=== PATIENT | male | born 1960 | race Caucasian/White ===

== ENCOUNTER 2025-01-12 02:33 | Inpatient (IN) | payer SELFPAY ==
[2025-01-11 20:03] VITALS: BP 141/87
[2025-01-11 20:48] LABS: ALT (SGPT) 18 U/L (0-50); AST (SGOT) 29 U/L (17-59); Albumin 4.3 g/dl (3.5-5.0); Alkaline Phosphatase 75 U/L (38-126); Blood Urea Nitrogen 22 mg/dl (9-20); Calcium 9.3 mg/dl (8.4-10.2); Carbon Dioxide 26 mmol/L (22-30); Chloride 101 mmol/L (98-107); Glucose 113 mg/dl (70-99); Potassium 4.5 mmol/L (3.5-5.1); Sodium 135 mmol/L (135-145); Total Protein 7.3 g/dl (6.3-8.2); eGFR 44.46
[2025-01-11 20:56] LABS: Hematocrit 25.3 % (39.0-52.0); Hemoglobin 7.2 g/dL (13.0-18.0); Mean Corp Hgb Conc. 28.5 g/dL (33.0-37.0); Mean Corpuscular Volume 73.3 fL (80.0-94.0); Platelet Count 401 10^3/uL (130-400); Red Cell Dist. Width 17.8 % (11.5-14.5)
[2025-01-11 20:57] LABS: Troponin I 0.020 ng/ml
--- NOTE | 2025-01-11 21:14 | ED.GENMED ---
History of Present Illness
<Corinna Petit PA-C - Last Filed: 01/12/25 01:50>
General
Chief Complaint: Abdominal Symptoms
Source: patient
Exam Limitations: none
Time Seen by Provider: 01/11/25 21:13
History of Present Illness
History of Present Illness:
64yoM with a history of tobacco use presenting for evaluation of weakness. Patient has been feeling fatigued and weak for the past several months. He was at work today and started to feel increasingly weak. He went outside and started to become
nauseous. He vomited twice and noticed that his right groin felt like it 'popped.' He noticed a small bulge in the right testicle yesterday which has become much larger today. He denies any groin pain currently. Patient has also been
experiencing bilateral flank pain over the past week. He denies any shortness of breath, chest pain, syncope. He has not seen a PCP in many years due to lack of health insurance. He smokes about 1 pack/day.
Phy Exam
<Corinna Petit PA-C - Last Filed: 01/12/25 01:50>
General Physical Exam
General Presentation: well appearing and no apparent distress
General Skin: warm and dry
General Habitus: normal
General Mental: alert
ENT Exam
ENT Exam: normocephalic
Cardiovascular Exam
Cardiovascular Exam: regular rate/rhythm
Pulmonary Exam
Pulmonary Exam: lungs clear, no respiratory distress, no rales, no crackles, no rhonchi and no wheezing
Gastrointestinal Exam
Gastrointestinal Exam: soft and other (Abdomen mildly distended but soft. No tenderness noted. +Large R inguinal hernia noted with scrotal enlargement. Hernia unable to be reduced. No skin changes.)
Stool: other (Stool brown, hemoccult positive)
Neurological Exam
Neurological Exam: alert
[place] Coma Scale
Eye Opening: Spontaneous
Verbal Response: Oriented
Motor Response: Obeys Commands
GCS Total Score: 15
Skin Exam
Skin Exam: normal color and warm/dry
Psychiatric Exam
Psychiatric Exam: normal mood/affect
<Anton Galindo DO - Last Filed: 01/13/25 06:19>
[place] Coma Scale
GCS Total Score: 15
Course
<Corinna Petit PA-C - Last Filed: 01/12/25 01:50>
Orders/Labs/Results
Orders:
Orders
01/11/25 20:11
Electrocardiogram (*1) Urgent
Reason for Study: Vertigo / Dizzy
EKG- Treatment ONCE
01/11/25 20:25
Complete Blood Count/With Diff Urgent
Comprehensive Metabolic Panel Urgent
Troponin I Urgent
01/11/25 21:36
CT Abd/pel W Iv And Oral Contr Urgent
Comment:
Reason For Exam: bilateral flank pain, R testicular pain
Iohexol [Omnipaque] See Protocol PO NOW STA
Pantoprazole [Protonix IV] 40 mg IV NOW STA
01/11/25 21:37
0.9% Sodium Chloride 1000 ml [Nss] 1,000 ml IV BOLUS
01/11/25 22:00
Type+Screen Urgent
01/12/25 00:51
NG Tube [GI tube insertion- Treatment] ONCE
01/12/25 00:53
Lactate Level [Lactic Acid] Urgent
01/12/25 01:00
Lidocaine 2% [Lidocaine Uro-Jet 2%] 1 syringe .ROUTE .STK-MED ONE
01/12/25 02:10
Admit/Transfer Patient As Directed
Co-Sign Provider:
Level of Care: Inpatient admission
Assign to:: Medical/Surgical
Physician / Group: Kenneth
Diagnosis: SBO, Inguinal Hernia, GI Bleeding
Reason for Hospitalization: SBO, Inguinal Hernia, GI Bleeding
Expected length of stay greater than two midnights?: Yes
ELOS- Estimated Length of Stay in days: 3
I certify the patient meets the requirements for IP care: Yes
PRN Pain Medication Management As Directed
May give lesser potent ordered pain med per pt: Yes
preference::
Protocol:: Medication orders for pain may be administered in a
manner that supports deferring to patient preference
when the pt is:
- Requesting an ordered lesser potent pain medication.
Least to most potent pain medications are defined
as: acetaminophen < NSAID < tramadol < opioids
(morphine, oxycodone, hydromorphone).
- Requesting a lesser dose of the same medication IF
ORDERED.
- Requesting a less intrusive route of administration
if both routes are prescribed by the provider (PO <
IV).
01/12/25 02:11
Code Status As Directed
Resuscitation Status: Full Code
01/12/25 02:44
HYDROmorphone [Dilaudid] 0.5 mg IV Q4HPRN PRN
Ondansetron Injectable [Zofran] 4 mg IV Q6HPRN PRN
01/12/25 02:44
Consult Notification Routine
Specialty to Notify: Gastroenterology
Date consulting provider notified: 01/12/25
Time consulting provider notified: 07:36
Notified:: Provider
Comment: Monsivais
GASTROINTESTINAL CONSULT Routine
Consulting Provider: Aura Felton
Was physician already notified: No
Reason for consult: GI Bleed
SURGICAL CONSULT Routine
Consulting Provider: Modesto Dunham
Was physician already notified: Yes
Reason for consult: RIH, SBO
Activity As Directed
Activity Level: Ambulate
With Assistance
Gastrointestinal Tubes As Directed
Type: [place] sump
To suction?: Yes
Type of suction: Low intermittent
Irrigate tube?: Yes
Irrigant: Tap Water
Frequency: Q4H
Amount in mls: 30
Irrigation Directions: Irrigate Q4H and PRN
I/O [Intake/ Output] As Directed
Frequency: Per unit guidelines
Pneumatic Compression Sleeves As Directed
Type: Knee high
Vital Signs As Directed
Frequency: Per unit guidelines
Oxygen Therapy [O2 Therapy] [RESP] Routine
Titrate/Wean O2 to maintain O2 sat greater than (%): 94
DX Deep Vein Thrombosis Video Routine
01/12/25 03:00
Lactated Ringers [Lr] 1,000 ml IV 100 mls/hr
01/12/25 04:55
Basic Metabolic Panel IN AM
Complete Blood Count/No Diff IN AM
Iron Routine
Total Iron Binding Routine
01/12/25 Breakfast
NPO
Allow oral meds: Yes
Allow clear liquids: Sips of Clears
01/12/25 08:00
Pantoprazole [Protonix IV] 40 mg IV BID
Abnormal Lab Results
01/11/25 01/11/25
20 22:00
RBC 3.45 L 10^6/uL
(4.70-6.10)
Hgb 7.2 L g/dL
(13.0-18.0)
Hct 25.3 L %
(39.0-52.0)
MCV 73.3 L fL
(80.0-94.0)
MCH 20.9 L pg
(27.0-31.0)
MCHC 28.5 L g/dL
(33.0-37.0)
RDW 17.8 H %
(11.5-14.5)
Plt Count 401 H 10^3/uL
(130-400)
Absolute Monos (auto) 0.7 H 10^3/uL
(0.1-0.6)
Lymphocytes % 16.1 L %
(20.5-51.1)
BUN 22 H mg/dl
(9-20)
Creatinine 1.7 H mg/dL
(0.7-1.3)
Glucose 113 H mg/dl
(70-99)
Crossmatch IS Only See Detail
01/11/25 20:25
01/11/25 20:25
Vital Signs
Initial and Last Documented VS:
Initial Vital Signs
Temp Pulse Resp BP Pulse Ox
97.7 F 104 22 141/87 99
01/11/25 20:03 01/11/25 20:03 01/11/25 20:03 01/11/25 20:03 01/11/25 20:03
Last Documented Vital Signs
Temp Pulse Resp BP Pulse Ox
97.8 F 81 18 137/85 95
01/12/25 22:55 01/12/25 22:55 01/12/25 22:55 01/12/25 22:55 01/12/25 22:55
<Anton Galindo, DO - Last Filed: 01/13/25 06:19>
Orders/Labs/Results
Orders:
Orders
01/11/25 20:11
Electrocardiogram (*1) Urgent
Reason for Study: Vertigo / Dizzy
EKG- Treatment ONCE
01/11/25 20:25
Complete Blood Count/With Diff Urgent
Comprehensive Metabolic Panel Urgent
Troponin I Urgent
01/11/25 21:36
CT Abd/pel W Iv And Oral Contr Urgent
Comment:
Reason For Exam: bilateral flank pain, R testicular pain
Iohexol [Omnipaque] See Protocol PO NOW STA
Pantoprazole [Protonix IV] 40 mg IV NOW STA
01/11/25 21:37
0.9% Sodium Chloride 1000 ml [Nss] 1,000 ml IV BOLUS
01/11/25 22:00
Type+Screen Urgent
01/12/25 00:51
NG Tube [GI tube insertion- Treatment] ONCE
01/12/25 00:53
Lactate Level [Lactic Acid] Urgent
01/12/25 01:00
Lidocaine 2% [Lidocaine Uro-Jet 2%] 1 syringe .ROUTE .STK-MED ONE
01/12/25 02:10
Admit/Transfer Patient As Directed
Co-Sign Provider:
Level of Care: Inpatient admission
Assign to:: Medical/Surgical
Physician / Group: Kenneth
Diagnosis: SBO, Inguinal Hernia, GI Bleeding
Reason for Hospitalization: SBO, Inguinal Hernia, GI Bleeding
Expected length of stay greater than two midnights?: Yes
ELOS- Estimated Length of Stay in days: 3
I certify the patient meets the requirements for IP care: Yes
PRN Pain Medication Management As Directed
May give lesser potent ordered pain med per pt: Yes
preference::
Protocol:: Medication orders for pain may be administered in a
manner that supports deferring to patient preference
when the pt is:
- Requesting an ordered lesser potent pain medication.
Least to most potent pain medications are defined
as: acetaminophen < NSAID < tramadol < opioids
(morphine, oxycodone, hydromorphone).
- Requesting a lesser dose of the same medication IF
ORDERED.
- Requesting a less intrusive route of administration
if both routes are prescribed by the provider (PO <
IV).
01/12/25 02:11
Code Status As Directed
Resuscitation Status: Full Code
01/12/25 02:44
HYDROmorphone [Dilaudid] 0.5 mg IV Q4HPRN PRN
Ondansetron Injectable [Zofran] 4 mg IV Q6HPRN PRN
01/12/25 02:44
Consult Notification Routine
Specialty to Notify: Gastroenterology
Date consulting provider notified: 01/12/25
Time consulting provider notified: 07:36
Notified:: Provider
Comment: Monsivais
GASTROINTESTINAL CONSULT Routine
Consulting Provider: Aura Felton
Was physician already notified: No
Reason for consult: GI Bleed
SURGICAL CONSULT Routine
Consulting Provider: Modesto Dunham
Was physician already notified: Yes
Reason for consult: RIH, SBO
Activity As Directed
Activity Level: Ambulate
With Assistance
Gastrointestinal Tubes As Directed
Type: [place] sump
To suction?: Yes
Type of suction: Low intermittent
Irrigate tube?: Yes
Irrigant: Tap Water
Frequency: Q4H
Amount in mls: 30
Irrigation Directions: Irrigate Q4H and PRN
I/O [Intake/ Output] As Directed
Frequency: Per unit guidelines
Pneumatic Compression Sleeves As Directed
Type: Knee high
Vital Signs As Directed
Frequency: Per unit guidelines
Oxygen Therapy [O2 Therapy] [RESP] Routine
Titrate/Wean O2 to maintain O2 sat greater than (%): 94
DX Deep Vein Thrombosis Video Routine
01/12/25 03:00
Lactated Ringers [Lr] 1,000 ml IV 100 mls/hr
01/12/25 04:55
Basic Metabolic Panel IN AM
Complete Blood Count/No Diff IN AM
Iron Routine
Total Iron Binding Routine
01/12/25 Breakfast
NPO
Allow oral meds: Yes
Allow clear liquids: Sips of Clears
01/12/25 08:00
Pantoprazole [Protonix IV] 40 mg IV BID
Abnormal Lab Results
01/11/25 01/11/25
20:25 22:00
RBC 3.45 L 10^6/uL
(4.70-6.10)
Hgb 7.2 L g/dL
(13.0-18.0)
Hct 25.3 L %
(39.0-52.0)
MCV 73.3 L fL
(80.0-94.0)
MCH 20.9 L pg
(27.0-31.0)
MCHC 28.5 L g/dL
(33.0-37.0)
RDW 17.8 H %
(11.5-14.5)
Plt Count 401 H 10^3/uL
(130-400)
Absolute Monos (auto) 0.7 H 10^3/uL
(0.1-0.6)
Lymphocytes % 16.1 L %
(20.5-51.1)
BUN 22 H mg/dl
(9-20)
Creatinine 1.7 H mg/dL
(0.7-1.3)
Glucose 113 H mg/dl
(70-99)
Crossmatch IS Only See Detail
01/11/25 20:25
01/11/25 20:25
Vital Signs
Initial and Last Documented VS:
Initial Vital Signs
Temp Pulse Resp BP Pulse Ox
97.7 F 104 22 141/87 99
01/11/25 20:03 01/11/25 20:03 01/11/25 20:03 01/11/25 20:03 01/11/25 20:03
Last Documented Vital Signs
Temp Pulse Resp BP Pulse Ox
97.8 F 81 18 137/85 95
01/12/25 22:55 01/12/25 22:55 01/12/25 22:55 01/12/25 22:55 01/12/25 22:55
Freddylt;Corinna Petit PA-C - Last Filed: 01/12/25 01:50>
MDM/Problems Addressed
Differential Diagnosis Includes:
64yoM here with n/v and R groin pain that began this evening. Has been feeling weak for a few months. He is nontoxic-appearing. There is a large right inguinal hernia noted on exam that is unable to be reduced. No skin changes noted and there is
no tenderness to this area. Differential diagnosis includes but is not limited to: Incarcerated hernia, small bowel obstruction, ileus
Initial ED plan: Workup initiated in triage. Significant anemia noted with a hemoglobin of 7.2. No prior labs to compare this to and patient has not seen a PCP in many years. Rectal exam performed and stool is brown although Hemoccult testing is
positive. Creatinine 1.7, unclear baseline. EKG shows normal sinus rhythm without ischemic changes and troponin normal. Will check type and screen and CT abdomen with IV/p.o. contrast. IV Protonix and fluid bolus ordered.
<Corinna Petit PA-C - Last Filed: 01/12/25 01:50>
*Pulse Oximetry
SaO2: 99
Oxygen Mode of Delivery: Room air
Patient hypoxic: no
*EKG
Interpreted by ED Provider?: Yes
EKG Intrepretation Date: 01/11/25
Heart Rate: 90
Rate: normal
Rhythm: sinus
Ronald: normal axis
Interval: normal interval
QRS Pattern: normal QRS
Ischemia: no ischemia
*Critical Care Note
Total Time (30-74mins, 75-104mins- exclusive of procedures): Not Applicable
<Corinna Petit PA-C - Last Filed: 01/12/25 01:50>
Update Note
Update Note:
Preliminary [facility] report indicates a small bowel obstruction likely secondary to a large right inguinal hernia containing loops of small bowel. On reassessment, patient continues to deny any abdominal/scrotal pain and he has not had any
further vomiting since arriving to the ED. NG tube ordered. Discussed case with rack production worker surgeon, Dr. Dunham, who agrees with this management. Patient admitted for further management.
ED Attending Note
<Corinna Petit PA-C - Last Filed: 01/12/25 01:50>
-
Portions of this chart may have been created with voice recognition software.� Occasional wrong word or��sound alike� substitutions may have occurred due to the inherent limitations of voice recognition software.
<Anton Galindo DO - Last Filed: 01/13/25 06:19>
ED Attending Note
Patient seen and examined by attending physician: Yes
I performed the substantive portion of visit, reviewed & personally made and approve the management plan that is documented in note by myself or MATI.: Yes
ED Attending Note:
Seen with PA agree with assessment and plan right inguinal hernia nausea vomiting anemia does not seek medical care, will check CT scan
Discharge Plan
Departure
Patient Disposition: Admit
Date of Disposition: 01/12/25
Time of Disposition: 00:58
Presentation/result/management discussed w/ accepting MD/DO: Hospitalist
Discharge Problem:
Small bowel obstruction, Right inguinal hernia, Anemia
Interventions
Interventions:
*Risk Screen - Suicide Last Done: 01/11/25 23:28
*General Assessment Last Done: 01/11/25 23:28
*Neglect/Abuse Screening Last Done: 01/12/25 04:40
*ED- Fall Risk Assessment Last Done: 01/11/25 23:28
*ED COVID-19 Vaccine History Last Done: 01/11/25 23:28
*ED Influenza Vaccine History Last Done: 01/11/25 23:28
*Nursing Disposition Last Done: 01/12/25 04:40
ZL-Gavflp-Rwuaukugca Assessment Last Done: 01/11/25 23:25
Discharge Date and Time
Discharge Date/Time: 01/12/25 08:00
[2025-01-11 21:43] LABS: Nucleated Red Blood Cells % 0 % (-)
[2025-01-11 21:46] LABS: Anisocytosis 2+; Hypochromasia 2+; Macrocytosis 2+; Microcytosis 1+; Normal RBC Morphology No; Target Cells 1+; Tear Drop Red Blood Cells Occasional
[2025-01-11] MEDS: PROTONIX IV 40 MG IV (22:08)
[2025-01-11] MEDS: NSS 1000 IV (22:08)
[2025-01-11] MEDS: OMNIPAQUE 50 ML PO (22:08)
[2025-01-11 23:21] VITALS: BP 163/86
[2025-01-12] VITALS (16 sets, daily range): BP systolic 132–168; BP diastolic 74–92
--- NOTE | 2025-01-12 02:13 | HPS.HSE ---
Family Physician
-
Family Physician: * NONE
Chief Complaint
-
Abd Pain, N/V
History of Present Illness
Patient is a 64y M with no known PMH who presents to ED complaining of right groin pain and N/V. Patient states that he was at work this evening lifting some heavy objects and he developed severe pain and 'tearing' in the R groin followed by
N/V. He presented to the ED for further evaluation. Patient states that he as had a small lump in the R groin with intermittent discomfort for a couple of months now. He notes that symptoms are typically worse after doing heavy lifting at work,
etc.
Patient has not previously had N/v associated with these symptoms.
He had an inguinal hernia repair in his 40s, but is not sure which side.
Patient also notes black, loose stools for about one month. Usually one stool per day.
No previous evaluation for this. No lightheadedness, dizziness, shortness of breath, etc.
Medical History
Past Medical History
Past Medical History: Reports None
Past Surgical History: Reports Other
Additional Past Surgical History:
Hernia Repair
L Hand Distal Phalanx Amputation
Social History
Tobacco: Smoker (Current every day smoker.)
Alcohol: Occasional
Drug: None
Family History
Family History: Other (Father: CAD Brother: Brain Cancer Sister: RA, Lymphoma)
Allergies / Home Medications
Allergies reflects when Allergies were last updated in [employer].
Home Medications with original date entered in [employer]
Allergy/Medication List:
Allergies
Allergy/AdvReac Type Severity Reaction Status Date / Time
No Known Allergies Allergy Verified 01/11/25 20:13
Home Medications
No Meds [No Current Medications] 01/11/25
Review of Systems
-
History Source: Patient
A 12 point ROS was completed and negative except as noted: Yes
Constitutional: Denies Fever or Chills
Respiratory: Denies Cough or Trouble Breathing
Cardiac: Denies Chest Pain or Palpitations
Abdomen/GI: Reports Nausea, Vomiting and Black Stools; Denies Abdominal Pain
: Reports Other (Groin pain.); Denies Flank Pain or Discharge
Musculoskeletal: Denies Joint Pain or Edema
Neurological: Denies Dizzy or Headache
Physical Exam
Vital Signs
Vital Signs
Temp Pulse Resp BP Pulse Ox
98.9 F 84 18 152/84 96
01/11/25 23:25 01/12/25 01:30 01/12/25 01:30 01/12/25 01:00 01/12/25 01:30
Physical Exam
General: Other (64y M in no acute distress.)
HEENT: Moist mucous membranes, PERRLA and Other (NG in place.)
Respiratory: Clear; No Wheezes, Rales or Rhonchi
Cardiac: S1/S2 and Regular Rhythm; No Murmur
GI: Soft, Non Tender, Non Distended and Normal Bowel Sounds
Genito-urinary: Other (R inguinal hernia with scrotal contents. Non-tender / easily reduced. Quickly recurs however.)
Musculoskeletal: No Clubbing, No Cyanosis and No Edema
Neuro: AO x 3
Laboratory Results
-
01/11/25 20:25
01/11/25 20:25
Laboratory Results
Lactic Acid 0.7 mmol/L (0.7-2.0) 01/12/25 00:53
Total Bilirubin 0.8 mg/dl (0.2-1.3) 01/11/25:25
AST 29 U/L (17-59) 01/11/25 20:25
ALT 18 U/L (0-50) 01/11/25 20:25
Alkaline Phosphatase 75 U/L (38-126) 01/11/25 20:25
Troponin I 0.020 ng/ml 10/20/25 20:25
Impression/Plan
-
A/P: Patient is a 64y M with no known PMH who presents to ED complaining of N/V and R groin pain and swelling.
Right Inguinal Hernia
SBO secondary to the above
- Admit for further evaluation and treatment.
- Large R inguinal hernia. Not tender. Easily reduced but quickly recurs.
- NG placed in the ED for decompression.
- Lactate is normal.
- Supportive care, NPO, IVFs, etc.
- Surgery evaluation for additional recommendations / repair.
GI Bleeding / Melena
Chronic Blood Loss Anemia secondary to the above
- Patient reports black, loose stools for at least one month.
- Hgb = 7.2 with microcytosis.
- Heme positive stool in the ED.
- IV PPI BID.
- Follow H&H - patient states at present that he would not want transfusion if needed, revisit if necessary.
- GI evaluation for additional recommendations / endoscopic examination(s).
CHANDLER v CKD
- SCr = 1.7 with no prior values for comparison.
- ? CHANDLER due to volume losses / blood loss.
- IVF support as noted above.
- Follow x 48 hours to establish baseline.
DVT Prophylaxis: SCDs
Code Status: Full
[2025-01-12] MEDS: LR 1000 IV ×2 (03:02→14:54)
[2025-01-12 05:50] LABS: Iron 31 ug/dl (49-181)
[2025-01-12 06:00] LABS: Total Iron Binding Capacity 360 ug/dl (261-462)
[2025-01-12 06:08] LABS: Blood Urea Nitrogen 19 mg/dl (9-20); Calcium 8.6 mg/dl (8.4-10.2); Carbon Dioxide 19 mmol/L (22-30); Chloride 107 mmol/L (98-107); Estimated Creatinine Clearance 49 ml/min; Glucose 77 mg/dl (70-99); Potassium 4.5 mmol/L (3.5-5.1); Sodium 135 mmol/L (135-145); eGFR 56.13
[2025-01-12 06:13] LABS: Hematocrit 21.9 % (39.0-52.0); Hemoglobin 6.2 g/dL (13.0-18.0); Mean Corp Hgb Conc. 28.3 g/dL (33.0-37.0); Mean Corpuscular Volume 74.5 fL (80.0-94.0); Platelet Count 342 10^3/uL (130-400); Red Cell Dist. Width 17.7 % (11.5-14.5)
--- NOTE | 2025-01-12 06:55 | W.PN.UPDATE ---
Update Note
Progress Note Update
Critical AM labs: Hgb 6.2/Hct 21.9, type and screen previously completed, consent obtained. Ordered 1 unit PRBC's to transfuse today.
--- NOTE | 2025-01-12 08:10 | W.PN.HOSP.TC ---
Today's Communication/Plan
-
See plan
Assessment / Plan
Assessment / Plan
Physical Exam
General: Not in acute distress
HEENT: Moist mucous membranes
Respiratory: Clear to Auscultation Bilaterally
Cardiac: S1/S2 and Regular Rhythm
GI: Soft, Non Tender, Non Distended and Normal Bowel Sounds
Genito-urinary: Other (R inguinal hernia with scrotal contents. Non-tender / easily reduced. Quickly recurs however.)
Musculoskeletal: No Cyanosis and No Edema
Neuro: AAO x 3
Assessment/Plan
64y M with no known significant past medical history except history of inguinal hernia repair in his 40s, who presented to [facility] emergency room complaining of right groin pain and nausea/vomiting. Patient stated that he was at work on 01/16/25
evening lifting some heavy objects and he developed severe pain and 'tearing' in the R groin followed by N/V. He presented to the ED for further evaluation. Patient stated that he as had a small lump in the R groin with intermittent discomfort for a
couple of months now. He noted that symptoms are typically worse after doing heavy lifting at work, etc.
Patient has not previously had N/v associated with these symptoms.
He had an inguinal hernia repair in his 40s, but is not sure which side.
Patient also notes black, loose stools for about one month. Usually one stool per day.
No previous evaluation for this. At the time of admission, he denied lightheadedness, dizziness, shortness of breath, etc.
Right Inguinal Hernia
SBO secondary to the above
- Large R inguinal hernia. Not tender. Easily reduced but quickly recurs.
- NG placed in the ED for decompression.
- Lactate is normal.
- Supportive care, NPO, IVFs, etc.
- Surgery evaluation for additional recommendations / repair.
GI Bleeding / Melena
Chronic Blood Loss Anemia secondary to the above
Small hiatal hernia, Esophagitis with no bleeding, Non-bleeding gastric ulcer with no stigmata of bleeding, Gastritis, Multiple recently bleeding angioectasias in the stomach status post argon plasma coagulation (APC) treatment,
Status post Two hemostatic clips were successfully placed (MR conditional) in the gastric body, Mucosal changes in the duodenum, Multiple angioectasias in the duodenum status post argon plasma coagulation (APC) treatment, one AVM with persistent
bleeding despite treatment with APC, starting to form ulcer, 2 hemostatic clips were placed for more definitive hemostasis -- as per EGD report from 01/12/25
- Patient reports black, loose stools for at least one month.
- Hgb = 6.2 with microcytosis.
- 1 unit PRBC ordered for 01/12/25
- Heme positive stool in the ED.
- Continue IV PPI BID --> recommend to transition to PO BID x 8 weeks, then daily. Needs repeat EGD in 8 weeks
- Follow H&H - patient states at present that he would not want transfusion if needed, revisit if necessary.
- GI performed upper endoscopy on 01/12/25, results are above in problem list
- Follow-up on biopsy results
- AVOID NSAIDs
CHANDLER v CKD
- SCr = 1.7-->1.4 with no prior values for comparison.
- ? CHANDLER due to volume losses / blood loss.
- IVF support as noted above.
- Follow BMP
Additional findings of 2.6 cm liver cyst
-Nonurgent MRI as an outpatient
1.2 cm possible adrenal adenoma
-Will need outpatient follow-up
DVT Prophylaxis: SCDs
Code Status: Full
This is a non-billable note.
Anticipated Discharge: 24 - 48 hours
Subjective/Interval History
-
Date of Service: January 12, 2025
Patient was seen and examined. He denied any new symptoms or complaints.
Objective Data
-
Labs:
Laboratory Results
01/11/25 01/12/25
20:25 04:55
WBC 8.2 7.4
Hgb 7.2 L 6.2 L*
Hct 25.3 L 21.9 L
Plt Count 401 H 342
Sodium 135 135
Potassium 4.5 4.5
Chloride 101 107
Carbon Dioxide 26 19 L
BUN 22 H 19
Creatinine 1.7 H 1.4 H
Glucose 113 H 77
Calcium 9.3 8.6
Total Bilirubin 0.8
AST 29
ALT 18
Alkaline Phosphatase 75
Vital Signs:
Vital Signs
Temp Pulse Resp BP Pulse Ox
98.2 F 84 18 147/74 98
01/12/25 05:00 01/12/25 04:15 01/12/25 05:00 01/12/25 04:00 01/12/25 05:00
I&O
01/11/25 01/12/25 01/13/25
06:59 06:59 06:59
Intake Total 50 / 50
Output Total 350 / 350
Balance -300 / -300
--- NOTE | 2025-01-12 08:47 | CON.GS ---
Medical History
-
Chief Complaint: Nausea, emesis, weakness
History of Present Illness:
Patient is a 64 yo M with a PMH of active tobacco use and s/p open primary umbilical hernia repair who presents with nausea and vomiting in the setting of several weeks of weakness. He has a known RIGHT inguinal hernia which he states has been
present for years. Mr. Loja states that he believes he had a smaller inguinal hernia, which caused occasional pulling sensation with strenuous activities, as well as a possible small bulge. Yesterday evening he had issues with nausea and
vomiting, during which time he developed a tearing sensation and worsening pain in his RIGHT groin. He denies any groin pain prior to the onset of his nausea and emesis. Character of his emesis is unknown. He denies any current inguinal or
abdominal pain. He denies any episodes of a firm non-reducible RIGHT groin bulge with overlying skin changes. He has been continuing to pass flatus throughout the evening. His last bowel movement was yesterday. He reports not feeling well over
the past several weeks, with associated weakness. He reports darker stools over the past several weeks. He denies any specific abdominal pain or discomfort. He is not on any antacid medications. No prior history of GERD or ulcers. No NSAID use.
He is an active smoker (half pack per day). He has not had any prior EGDs or colonoscopies.
Past Medical History
Past Medical History: None
Past Surgical History: Hernia Repair (Umbilical primary? at [facility] years ago)
Social History
Tobacco: Smoker (1/2 PPD for years)
Alcohol: Other (3x per week)
Drug: None
Family History
Family History: Cancer (Unknown type, not colon)
Allergies / Home Medications
Allergy/AdvReac Type Severity Reaction Status Date / Time
No Known Allergies Allergy Verified 01/11/25 20:13
�Medication �Instructions �Recorded �Confirmed �Type
No Meds [No Current Medications] 01/11/25 01/12/25 History
Review of Systems
-
A 10 point review of systems was completed, and was negative except as per HPI.
Physical Exam
Vital Signs
Temp Pulse Resp BP Pulse Ox
98.1 F 83 16 154/83 94
01/12/25 08:15 01/12/25 08:15 01/12/25 08:15 01/12/25 08:15 01/12/25 08:15
01/11/25 01/12/25 01/13/25
06:59 06:59 06:59
Actual Weight 65 kg
Body Mass Index (BMI) 20.0
Lab Results
01/12/25 04:55
01/12/25 04:55
WBC 7.4 10^3/uL (4.8-10.8) 01/12/25 04:55
Hgb 6.2 g/dL (13.0-18.0) L* 01/12/25 04:55
Hct 21.9 % (39.0-52.0) L 01/12/25 04:55
Plt Count 342 10^3/uL (130-400) 01/12/25 04:55
Abs Immat Gran (auto) 0.0 10^3/uL (0-0.05) 01/11/25 20:25
Neutrophils % 73.2 % (42.2-75.2) 01/11/25 20:25
Physical Exam
General: Well Developed, Well Nourished and No Apparent Distress
HEENT: Normocephalic, Anicteric and Other (NGT self removed, no output in cannister)
Cardiac: Regular Rhythm
GI: Soft, Non Tender, Non Distended, Incisions (Periumbilical well healed) and Other (Non-peritoneal)
Genito-urinary: Inguinal Hernia (RIGHT large inguinoscrotal, reducible, soft, non-tender)
Musculoskeletal: No Edema
Skin: Warm and Dry
Neuro: Nonfocal/Grossly Intact
Data Reviewed
-
CT Scan: Image Personally Visualized and interpreted
Labs: Labs Reviewed by me
Assessment / Plan
-
Patient is a 64 yo M p/w nausea and vomiting in the setting of a reducible RIGHT inguinal hernia and newfound anemia.
Difficult to tell if his anemia is related to a chronic more intermittently incarcerated inguinal hernia versus alternative GI source. Reports of darker stools would indicate that this is more from an upper GI source. Possibly ulcerative given his
smoking history. Possibly traumatic/[place] from episode of nausea and vomiting. Character of NGT output unknown due to patient self removal of NGT. Currently, he has a symptomatic, reducible RIGHT inguinal hernia. No clear reported history
of incarceration or strangulation CT scan demonstrates that this appears to be more of a direct hernia containing small bowel, with a likely transition point. No evidence of pneumatosis or free air, no evidence of significant bowel wall thickening
or significant fluid within the hernia sac.
The natural history and pathophysiology of inguinal hernias was discussed. Anatomy was reviewed. CT scan imaging was reviewed. Options for management were briefly considered and discussed. Given the symptomatic nature, large nature and size, and
presence of bowel with likely associated episode of obstruction would recommend operative repair. Given his current issues with anemia would recommend workup and management prior to surgical intervention. GI consult noted. Plan for EGD today.
Currently being transfused 1 unit of PRBC. Timing of surgical intervention TBD. Options for surgical repair were considered and discussed. Specifically, we discussed open and MIS approaches. The pros and cons of both approaches was discussed.
Would likely recommend robotic repair especially given the direct nature of his hernia. The procedure itself, as well as the risks, benefits, and alternatives was discussed. Typical postprocedural recovery was discussed.
All questions answered.
-- [facility] hernia repair, timing and approach TBD
-- GI consult noted, EGD today
-- Transfuse 1 U pRBC, trend Hb
-- PPI, avoid NSAIDs
-- X-ray abd to assess SB dilation and passage of contrast (helping to assess need for NGT replacement)
-- NGT replacement at time of EGD pending procedural findings and above imaging
[2025-01-12] MEDS: PROTONIX IV 40 MG IV ×2 (09:04→20:16)
[2025-01-12] MEDS: NSS (PRESERVATIVE FREE) 10 ML IV ×2 (09:05→20:15)
--- NOTE | 2025-01-12 09:05 | CON.GI ---
Addendum entered and electronically signed by Christina Monsivais DO 01/12/25 12:04:
The patient was seen and examined by me independently in collaboration with the nurse practitioner.
Past medical history/social history/medications/allergies/family history reviewed.
Lab data and imaging data reviewed.
Jose Alfredo is a 64-year-old male with no reported past medical history who presents with 1 month of black tarry stools and sudden onset groin pain and reports of a popping noise, found to have small bowel obstruction with a large right inguinal hernia
containing loops of distal ileal small bowel as a transition point. NG tube was placed however got dislodged, currently patient is asymptomatic. He was evaluated by surgery, reducible right inguinal hernia which needs intervention however
hemoglobin currently 6.2 with concerns for upper GI bleeding. Denies NSAIDS, blood thinners. Admits to drinking etoh 3x per week, total of 12 drinks per week.
Hgb 6.2 getting 1 unit of PRBC, 2nd unit ordered
BUN --> 19
PPI IV BID
IVF
2 peripheral gauge IVs
Active T&C
NPO-- plan for EGD today
Eventual surgery for inguinal hernia, timing TBD, no signs of incarceration or strangulation
Additional findings of 2.6 cm liver cyst-- recommend nonurgent MRI as an outpatient. 1.2 cm possible adrenal adenoma, will defer to primary on further workup.
Original Note:
Consultation
-
Date/Time Consultation Requested: 01/12/25 0240
Date/Time Consultation Performed: 01/12/25 0900
Requesting Provider: Raymond Cooper DO
Performing Provider: AFSHAN Silva, Magaly Monsivais DO
Reason for Consultation: anemia
Medical History
Chief Complaint / HPI
History of Present Illness:
Pt is a 64yo with prior umbilical hernia repair and finger amputation but has not seen an MD in many years with recent onset of groin discomfort and change in stool pattern over last month. Pt also admits to black stools with brown heme + stool
on ER. On 01/11 Pt began with weakness nausea/vomiting dark emesis after eating tomato bisque soup. He then began with increased groin pain. On admission noted with hbg 7.2 then drop to 6.2, WBC 8.2, platelets 401, creat 1.7, bili 0.8, AST 29,
ALT 18, alk phos [address] completed on admission with concern for small bowel obstruction with large right inguinal hernia containing loops of distal ileal small bowel as transition point. also noted liver cyst 2.6 cm, contracted GB,
? small adenoma adenoma, small fat containing inguinal hernia, large left scrotal hydrocele and DDD.
In review with patient no symptoms til last month. He also admits to 10 lbs wt loss with decreased appetite. He denies odynophagia, dysphagia, GERD, abdominal pain other than groin pain, constipation or red blood in stools. No NSAID or
anticoagulation use.
.
Past Medical History
Past Medical History: Other (none )
Past Surgical History: Other (umbilical hernia repair in his 40's, distal phayanx amputation)
Social History
Tobacco: Smoker (<1PPD)
Alcohol: Occasional ( 5 drinks 3 times per week)
Drug: None
Employment: Employed (works in restaurant )
Family History
Family History: Other (sister with hx RA and infection, brother with brain mass )
Allergies / Home Medications
Allergy/AdvReac Type Severity Reaction Status Date / Time
No Known Allergies Allergy Verified 01/11/25 20:13
�Medication �Instructions �Recorded
No Meds [No Current Medications] 01/11/25
Review of Systems
-
History Source: Patient
Constitutional: Reports Weight Loss (10 lbs )
EENT: Reports No Symptoms
Respiratory: Reports No Symptoms
Cardiac: Reports No Symptoms
Abdomen/GI: Reports Nausea, Vomiting, Black Stools and Other (groin pain )
: Reports No Symptoms
Musculoskeletal: Reports No Symptoms
Skin: Reports No Symptoms
Neurological: Reports Dizzy and Weakness
Endocrine: Reports No Symptoms
Hematologic/Lymphatic: Reports Bleeding
Vital Signs
Temp Pulse Resp BP Pulse Ox
98.1 F 83 16 154/83 94
01/12/25 08:15 01/12/25 08:15 01/12/25 08:15 01/12/25 08:15 01/12/25 08:15
Physical Exam
Exam
General: Well Developed, Well Nourished and No Apparent Distress
HEENT: Normocephalic and Anicteric
Respiratory: Clear
Cardiac: Regular Rhythm
GI: Soft, Non Distended and Other (right groin bulge with discomfort)
Rectal: Brown (heme + in ER)
Musculoskeletal: No Clubbing and No Cyanosis
Skin: Warm and Dry
Neuro: Awake, Alert and AO x 3
Psych: Calm
Results
WBC 7.4 10^3/uL (4.8-10.8) 01/12/25 04:55
Hgb 6.2 g/dL (13.0-18.0) L* 01/12/25 04:55
Hct 21.9 % (39.0-52.0) L 01/12/25 04:55
MCV 74.5 fL (80.0-94.0) L 01/12/25 04:55
Plt Count 342 10^3/uL (130-400) 01/12/25 04:55
Absolute Neuts (auto) 6.0 10^3/uL (1.4-6.5) 01/11/25 20:25
Sodium 135 mmol/L (135-145) 01/12/25 04:55
Potassium 4.5 mmol/L (3.5-5.1) 01/12/25 04:55
Chloride 107 mmol/L (98-107) 01/12/25 04:55
Carbon Dioxide 19 mmol/L (22-30) L 01/12/25 04:55
BUN 19 mg/dl (9-20) 01/12/25 04:55
Creatinine 1.4 mg/dL (0.7-1.3) H 01/12/25 04:55
Calcium 8.6 mg/dl (8.4-10.2) 01/12/25 04:55
Total Bilirubin 0.8 mg/dl (0.2-1.3) 01/11/25 20:25
AST 29 U/L (17-59) 01/11/25 20:25
ALT 18 U/L (0-50) 01/11/25 20:25
Alkaline Phosphatase 75 U/L (38-126) 01/11/25 20:25
Diagnostic Image Results:
01/11/25 CT Abd/pel W Iv And Oral Contr
concern for small bowel obstruction with large right inguinal hernia containing loops of distal ileal small bowel as transition point. also noted liver cyst 2.6 cm, contracted GB, ? small adenoma adenoma, small fat containing inguinal hernia,
large left scrotal hydrocele and DDD.
Prior GI Procedures:
EGD: none
Colonoscopy: none
Assessment / Plan
-
Pt is a 64yo with prior umbilical hernia repair and finger amputation but has not seen an MD in many years with recent onset of groin discomfort and change in stool pattern over last month. Pt also admits to black stools with brown heme + stool
on ER. On 01/11 Pt began with weakness nausea/vomiting dark emesis after eating tomato bisque soup. He then began with increased groin pain. On admission noted with hbg 7.2 then drop to 6.2, WBC 8.2, platelets 401, creat 1.7, bili 0.8, AST 29, ALT
18, alk phos [address] completed on admission with concern for small bowel obstruction with large right inguinal hernia containing loops of distal ileal small bowel as transition point. also noted liver cyst 2.6 cm, contracted GB, ?
small adenoma adenoma, small fat containing inguinal hernia, large left scrotal hydrocele and DDD. In review with patient no symptoms til last month. He also admits to 10 lbs wt loss with decreased appetite. No NSAIDs or anticoagulation prior to
admission.
-CT concern for Small bowel obstruction with large right inguinal hernia containing distal small bowel
-groin pain with ing
-anemia with drop in hbg after admission
-nausea/vomiting dark emesis prior to admission
-recent black stools
-recent wt loss with decreased appetite
other med problems:
-prior umbilical hernia repair
-finger amputation
-ETOH use
-tobacco abuse
PLAN:
Concern for SBO, inguinal hernia and anemia
CT as noted
plan for EGD today with anemia - may need NGT placement in procedure
for transfusion now- noted delay with blood bank
NPO
cont PPI BID
trend hbg
IVF
appreciate surgical eval
NSAID avoidance -- currently not taking
-
-
Thank you for consultation and allowing me to participate in the patient's care. Please call the visitor information assistant GI physician during the after hours with any questions or concerns.
--- NOTE | 2025-01-12 11:00 | CM ---
CM reviewed chart, patient seen bedside, initial assessment completed.
Patient is a 64 year old Male with no known PMH who presents to ED complaining of right groin pain and N/V.
Patient resides independently in an apartment, one level, no steps to enter.
Patient denies VN/SNF hx, denies DME.
Patient reports he has good support from his neighbor and landlord.
Patient denies having PCP, Pharmacy [facility].
Patient denies insecurities at home.
Patient reports current hospitalization is due to workmans comp- has not contacted employer yet, informed patient he needs to contact employer for workmans comp information for hospital admissions to obtain information.
CM will continue to follow.
Plan; home no needs likely
[2025-01-12 15:02] LABS: Ferritin 4.7 ng/ml (17.9-464.0)
[2025-01-12 15:45] LABS: Hematocrit 27.7 % (39.0-52.0); Hemoglobin 8.4 g/dL (13.0-18.0)
[2025-01-12 22:34] LABS: Hematocrit 26.6 % (39.0-52.0); Hemoglobin 8.1 g/dL (13.0-18.0)
[2025-01-13] MEDS: LR 1000 IV (00:08)
--- NOTE | 2025-01-13 02:31 | DOWNTIME ---
There was a [employer] Downtime on 01/13/2025 from 0100 to 01/13/2025 at 0215. Downtime documentation of patient's care, including medication administrations, has been reconciled in the electronic record per guidelines. Refer to the
patient's paper chart under the miscellaneous tab to see printed paper medication records and downtime forms.
[2025-01-13 07:00] VITALS: BP 127/72
--- NOTE | 2025-01-13 07:39 | W.PN.GI.CBS2 ---
Today's Communication / Plan
-
Outpatient f/u with GI. PPI BID x8 weeks then once daily. Timing inguinal hernia surgery per surgery. GI will sign off, please call with questions.
Assessment / Plan
-
#UGIB
#Esophagitis
#Esophageal Ulcer
#Gastric/Duodenal AVMs s/p APC, 1 gastric AVM with persistent oozing, 2x hemostatic clips placed with excellent hemostasis.
-- c/f mild portal hypertensive gastropathy.
Discussed above findings from yesterdays EGD extensively with patient. He does use etoh regularly, at least 12 drinks per week, though, admitted to another provider that he drinks 16 alcoholic beverages per week. He has been going through a hard
time after losing both his brother and sister within 1 year of each other.
On CT, small liver cyst, which we discussed, I recommend outpatient MRI to further characterize. I am concerned he at least has advanced fibrosis based on EGD, but can further evaluate with elastography with MRI that he needs for his cyst. We
discussed this as well will set him up with an office visit.
-hemoglobin stable
-getting IV iron, please d/c with PO iron 3x weekly
-d/c with PPI BID x8 weeks then once daily
-outpatient follow-up with GI for liver workup, MRI/elastography
-discussed cutting back significantly on etoh use
-will set up for repeat EGD in 8 weeks. Additionally, needs colonoscopy for CRC screening, will arrange
-defer timing of right inguinal hernia repair to surgery, obstruction seems to have resolved based on his clinical exam.
GI will sign off, please call with questions.
Subjective
Subjective
Date of Service: January 13, 2025
Patient is s/p EGD yesterday with findings c/f portal hypertensive gastropathy, multiple duodenal and gastric AVMs with stigmata of recent bleeding, treated with APC. Small clean based esophageal ulcer and esophagitis. He was transfused with 2 units
PRBC, hgb 8.4, repeat 8.1. Reports brown stool overnight.
Objective
Data Reviewed
Laboratory Data:
Laboratory Results
Total Bilirubin 0.8 mg/dl (0.2-1.3) 01/11/25 20:25
AST 29 U/L (17-59) 01/11/25 20:25
ALT 18 U/L (0-50) 01/11/25 20:25
Alkaline Phosphatase 75 U/L (38-126) 01/11/25 20:25
Vital Signs and I&O:
Vital Signs
Temp Pulse Resp BP Pulse Ox
97.8 F 81 18 137/85 95
01/12/25 22:55 01/12/25 22:55 01/12/25 22:55 01/12/25 22:55 01/12/25 22:55
I&O
01/12/25 01/13/25 01/14/25
06:59 06:59 06:59
Intake Total 50 / 50 300 / 300
Output Total 350 / 350 850 / 850
Balance -300 / -300 -550 / -550
Physical Exam
Physical Exam
HEENT: Anicteric and Moist mucous membranes
GI: Soft, Non Distended and Non Tender
[2025-01-13 07:44] LABS: Hematocrit 25.8 % (39.0-52.0); Hemoglobin 7.9 g/dL (13.0-18.0); Mean Corp Hgb Conc. 30.6 g/dL (33.0-37.0); Mean Corpuscular Volume 75.9 fL (80.0-94.0); Platelet Count 326 10^3/uL (130-400); Red Cell Dist. Width 19.0 % (11.5-14.5)
--- NOTE | 2025-01-13 08:13 | W.PN.HOSP.TC ---
Today's Communication/Plan
-
Discharge today
Assessment / Plan
Assessment / Plan
Physical Exam
General: Not in acute distress
HEENT: Moist mucous membranes
Respiratory: Clear to Auscultation Bilaterally
Cardiac: S1/S2 and Regular Rhythm
GI: Soft, Non Tender, Non Distended and Normal Bowel Sounds
Genito-urinary: Other (R inguinal hernia with scrotal contents. Non-tender / easily reduced. Quickly recurs however.)
Musculoskeletal: No Cyanosis and No Edema
Neuro: AAO x 3
Assessment/Plan
64y M with no known significant past medical history except history of inguinal hernia repair in his 40s, who presented to [facility] emergency room complaining of right groin pain and nausea/vomiting. Patient stated that he was at work on 01/16/25
evening lifting some heavy objects and he developed severe pain and 'tearing' in the R groin followed by N/V. He presented to the ED for further evaluation. Patient stated that he as had a small lump in the R groin with intermittent discomfort for a
couple of months now. He noted that symptoms are typically worse after doing heavy lifting at work, etc.
Patient has not previously had N/v associated with these symptoms.
He had an inguinal hernia repair in his 40s, but is not sure which side.
Patient also notes black, loose stools for about one month. Usually one stool per day.
No previous evaluation for this. At the time of admission, he denied lightheadedness, dizziness, shortness of breath, etc.
Right Inguinal Hernia
SBO secondary to the above
- Large R inguinal hernia. Not tender. Easily reduced but quickly recurs.
- NG placed in the ED for decompression.
- Lactate is normal.
- Supportive care, NPO, IVFs, etc.
- Surgery evaluation for additional recommendations / repair.
GI Bleeding / Melena
Chronic Blood Loss Anemia secondary to the above
Small hiatal hernia, Esophagitis with no bleeding, Non-bleeding gastric ulcer with no stigmata of bleeding, Gastritis, Multiple recently bleeding angioectasias in the stomach status post argon plasma coagulation (APC) treatment,
Status post Two hemostatic clips were successfully placed (MR conditional) in the gastric body, Mucosal changes in the duodenum, Multiple angioectasias in the duodenum status post argon plasma coagulation (APC) treatment, one AVM with persistent
bleeding despite treatment with APC, starting to form ulcer, 2 hemostatic clips were placed for more definitive hemostasis -- as per EGD report from 01/12/25
- Patient reports black, loose stools for at least one month.
- Hgb = 6.2 with microcytosis.
- 1 unit PRBC ordered for 01/12/25
- Heme positive stool in the ED.
- Continue IV PPI BID --> recommend to transition to PO BID x 8 weeks, then once daily. Needs repeat EGD in 8 weeks
- Follow H&H - patient states at present that he would not want transfusion if needed, revisit if necessary.
- GI performed upper endoscopy on 01/12/25, results are above in problem list
- Follow-up on biopsy results
- AVOID NSAIDs
- Outpatient follow-up with gastroenterology.
Iron Deficiency Anemia
- Discharge with PO Iron 325 mg Q48H
CHANDLER v CKD
- SCr = 1.7-->1.4 with no prior values for comparison.
- ? CHANDLER due to volume losses / blood loss.
- IVF support as noted above.
- Follow BMP
Additional findings of 2.6 cm liver cyst
-Nonurgent MRI as an outpatient -- MRI/elastography
Alcohol Use Disorder
- Will need to reduce alcohol intake
1.2 cm possible adrenal adenoma
-Will need outpatient follow-up
DVT Prophylaxis: SCDs
Code Status: Full
More than 30 minutes spent in discharge including
Final examination of the patient
Summarizing hospital stay
Instructions for continuing care to all relevant caregivers
Preparation of discharge records, prescriptions, and referral forms
Total time spent (in minutes): 38
Anticipated Discharge: Today
Subjective/Interval History
-
Date of Service: January 13, 2025
Patient was seen and examined. He reported that he had a normal, brown-colored bowel movement overnight. He is eating and drinking well, and denied any other new symptoms or complaints.
Objective Data
-
Labs:
Laboratory Results
01/12/25 01/13/25
22:27 07:17
WBC 9.2
Hgb 8.1 L 7.9 L
Hct 26.6 L 25.8 L
Plt Count 326
Sodium Pending
Potassium Pending
Chloride Pending
Carbon Dioxide Pending
BUN Pending
Creatinine Pending
Glucose Pending
Calcium Pending
Vital Signs:
Vital Signs
Temp Pulse Resp BP Pulse Ox
97.6 F 83 16 127/72 92
01/13/25 07:00 01/13/25 07:00 01/13/25 07:00 01/13/25 07:00 01/13/25 07:00
I&O
01/12/25 01/13/25 01/14/25
06:59 06:59 06:59
Intake Total 50 / 50 300 / 300
Output Total 350 / 350 850 / 850
Balance -300 / -300 -550 / -550
[2025-01-13 08:26] LABS: Blood Urea Nitrogen 15 mg/dl (9-20); Calcium 8.8 mg/dl (8.4-10.2); Carbon Dioxide 23 mmol/L (22-30); Chloride 104 mmol/L (98-107); Estimated Creatinine Clearance 57 ml/min; Glucose 113 mg/dl (70-99); Potassium 4.0 mmol/L (3.5-5.1); Sodium 135 mmol/L (135-145); eGFR > 60.00
[2025-01-13] MEDS: NSS (PRESERVATIVE FREE) 10 ML IV (08:38)
[2025-01-13] MEDS: PROTONIX IV 40 MG IV (08:38)
[2025-01-13] MEDS: LR IV (10:05)
--- NOTE | 2025-01-13 13:42 | CM ---
CM reviewed chart, patient seen bedside, for d/c today.
Patient confirms transportation home.
Per patient, he has reached out to his employer, has not heard back regarding workman's comp information.
CM will continue to follow.
Plan; home no needs
[2025-01-13 15:02] VITALS: BP 133/58
== END 2025-01-13 15:58 | disposition home or self-care (01) | DRG 393 ==
LOC: 1 ACUTE 02:33
PROVIDERS: Emergency Medicine; Internal Medicine; Nurse Practitioner Adult Health; Physician Assistant; ADMITTING PHYSICIAN Hospitalist; ATTENDING PHYSICIAN Hospitalist; CONSULT PHYSICIAN Internal Medicine Gastroenterology; CONSULT PHYSICIAN Surgery; EMERGENCY PHYSICIAN Emergency Medicine
PROC: 0DB48ZX Excision of Esophagogastric Junction, Via Natural or Artificial Opening Endoscopic, Diagnostic (ICD-10-PCS; 2025-01-12)
PROC: XW0G886 Introduction of Mineral-based Topical Hemostatic Agent into Upper GI, Via Natural or Artificial Opening Endoscopic, New Technology Group 6 (ICD-10-PCS; 2025-01-12)
PROC: 30233N1 Transfusion of Nonautologous Red Blood Cells into Peripheral Vein, Percutaneous Approach (ICD-10-PCS; 2025-01-12)
PROC: 0W3P8ZZ Control Bleeding in Gastrointestinal Tract, Via Natural or Artificial Opening Endoscopic (ICD-10-PCS; 2025-01-12)
DX: K40.30 Unilateral inguinal hernia, with obstruction, without gangrene, not specified as recurrent (principal); K31.811 Angiodysplasia of stomach and duodenum with bleeding; N17.9 Acute kidney failure, unspecified; K76.6 Portal hypertension; K31.89 Other diseases of stomach and duodenum; D50.0 Iron deficiency anemia secondary to blood loss (chronic); N18.9 Chronic kidney disease, unspecified; F17.210 Nicotine dependence, cigarettes, uncomplicated; K29.70 Gastritis, unspecified, without bleeding; K25.9 Gastric ulcer, unspecified as acute or chronic, without hemorrhage or perforation; F10.10 Alcohol abuse, uncomplicated; Z59.71 Insufficient health insurance coverage; Z79.899 Other long term (current) drug therapy
CPT/HCPCS: 74018; 74177; 80048; 80053; 82728; 83540; 83550; 83605; 84484; 85014; 85018; 85025; 85027; 86850; 86900; 86901; 86920; 88305; 93005; 99406; J2916; P9016; Q9967